=== PATIENT | male | born 1990 | race Caucasian/White ===

== ENCOUNTER 2021-12-12 23:26 | Inpatient (IN) | payer OTHER ==
[~2021-12-12] VITALS: Ht 175.3 cm; Wt 49.9 kg
[2021-12-13 01:09] LABS: HEMOGLOBIN 10.5 gm/dl (14.0-17.5); RED BLOOD COUNT 4.1 M/UL (4.20-5.50); WHITE BLOOD COUNT 26.9 K/UL (4.5-11.0)
[2021-12-13 01:36] LABS: BUN/CREATININE RATIO 43 (0-10)
[2021-12-13 05:46] LABS: HEMOGLOBIN 8.5 gm/dl (14.0-17.5); RED BLOOD COUNT 3.37 M/UL (4.20-5.50); WHITE BLOOD COUNT 12.5 K/UL (4.5-11.0)
[2021-12-13 05:53] LABS: BUN/CREATININE RATIO 45 (0-10)
[2021-12-13] MEDS ORDERED: IBUPROFEN200 MG PO (09:22)
--- NOTE | 2021-12-13 10:44 | NUR ---
1044- CRITICAL LAB LACTIC ACID 29.6 CALLED TO . NO NEW ORDERS
[2021-12-13 13:39] LABS: ACINETOBACTER BAUMANNII Not Detected (Negative); CANDIDA ALBICANS Not Detected (Negative); CANDIDA KRUSEI Not Detected (Negative); CANDIDA TROPICALIS Not Detected (Negative); ENTEROCOCCUS Not Detected (Negative); ESCHERICHIA COLI Not Detected (Negative); HAEMOPHILUS INFLUENZAE Not Detected (Negative); KLEBSIELLA OXYTOCA Not Detected (Negative); KLEBSIELLA PNEUMONIAE Not Detected (Negative); KPC-CARBAPENEM-RESISTANCE GENE Not Detected (Negative); PROTEUS Not Detected (Negative); PSEUDOMONAS AERUGINOSA Not Detected (Negative); STAPHYLOCOCCUS Not Detected (Negative); STAPHYLOCOCCUS AUREUS Not Detected (Negative); STREP AGALACTIAE (GROUP B) Not Detected (Negative); STREP PYOGENES (GROUP A) Not Detected (Negative); mecA (METHICILLIN RESIST GENE Not Detected (Negative); vanA/B (VANCOMYCIN RESIST GENE Not Detected (Negative)
[2021-12-13 13:41] LABS: SERRATIA MARCESANS DETECTED (Negative); STREPTOCOCCUS DETECTED (Negative)
--- NOTE | 2021-12-13 14:10 | NUR ---
PATIENT RECEIVED FROM MED SURG. ARRIVES TO ROOM UPON ASSESSMENT RESPIRATIONS OF 47. O2 SAT 96% ON 5 LITERS. PATIENT IS QUITE ANXIOUS. REPORT TO MD. NEW ORDERS NOTED.
[2021-12-13] MEDS ORDERED: [UNRECOGNIZED DRUG - REMARK] (17:23)
[2021-12-13 18:47] LABS: HEMOGLOBIN 8.9 gm/dl (14.0-17.5); RED BLOOD COUNT 3.49 M/UL (4.20-5.50)
[2021-12-13 18:56] LABS: WHITE BLOOD COUNT 28.6 K/UL (4.5-11.0)
[2021-12-14 02:47] LABS: HEMOGLOBIN 8.2 gm/dl (14.0-17.5); RED BLOOD COUNT 3.2 M/UL (4.20-5.50); WHITE BLOOD COUNT 28.4 K/UL (4.5-11.0)
[2021-12-14 03:04] LABS: BUN/CREATININE RATIO 46 (0-10)
--- NOTE | 2021-12-14 11:33 | NUR ---
PATIENT IS QUITE ANXIOUS, AFTER ANXIETY MEDICATION
--- NOTE | 2021-12-14 11:56 | NUR ---
PATIENT INCREASINGLY AGITATED, PULLING OFF OXYGEN, PULLING OUT IV, PULLING OFF TELEMETRY. PATIENT RESPIRTATIONS ARE STAYING IN THE UPPER 40'S AND 50'S. CALLED PULMONOLOGY MD COBURN TO ALERT HER OF THE PATIENT DECLINE. SHE REQUESTS PATIENT BE SENT TO ICU. PATIENT STILL AWAITING BED AT [facility]
--- NOTE | 2021-12-14 12:57 | NUR ---
REPORT GIVEN TO [facility] ICU. PATIENT TRANSPORTED PER PCU STAFF AND RESPIRATORY. PATIENT TOLERATED WELL
[2021-12-14 15:12] LABS: HEMOGLOBIN 8.7 gm/dl (14.0-17.5); RED BLOOD COUNT 3.47 M/UL (4.20-5.50)
[2021-12-14 15:14] LABS: WHITE BLOOD COUNT 30.7 K/UL (4.5-11.0)
[2021-12-15 02:32] LABS: HEMOGLOBIN 6.4 gm/dl (14.0-17.5); RED BLOOD COUNT 2.6 M/UL (4.20-5.50); WHITE BLOOD COUNT 39.6 K/UL (4.5-11.0)
[2021-12-16 17:09] LABS: ALPHA-1-ANTITRYPSIN, SERUM 451 mg/dL (95-164)
[2021-12-17 16:14] LABS: ORGANISM ID Not indicated. (.); SPECIMEN SOURCE Urine (.); STREPTOCOCCUS PNEUMONIAE AG Negative (Negative)
== END 2021-12-15 11:37 | disposition expired | DRG 871 ==
LOC: ER1 23:26 → CDU 12-13 04:16 → M/S 12-13 06:55 → PROG CARE 12-13 14:17 → CCU 12-14 12:29
PROVIDERS: Internal Medicine; Student in an Organized Health Care Education/Training Program; ADMIT Internal Medicine
PROC: 3E03329 Introduction of Other Anti-infective into Peripheral Vein, Percutaneous Approach (ICD-10-PCS; principal; 2021-12-13)
PROC: 30233R1 Transfusion of Nonautologous Platelets into Peripheral Vein, Percutaneous Approach (ICD-10-PCS; 2021-12-13)
PROC: B24BZZZ Ultrasonography of Heart with Aorta (ICD-10-PCS; 2021-12-13)
PROC: 05HN33Z Insertion of Infusion Device into Left Internal Jugular Vein, Percutaneous Approach (ICD-10-PCS; 2021-12-14)
PROC: B544ZZA Ultrasonography of Left Jugular Veins, Guidance (ICD-10-PCS; 2021-12-14)
PROC: 0BH18EZ Insertion of Endotracheal Airway into Trachea, Via Natural or Artificial Opening Endoscopic (ICD-10-PCS; 2021-12-14)
PROC: 5A1935Z Respiratory Ventilation, Less than 24 Consecutive Hours (ICD-10-PCS; 2021-12-14)
PROC: 5A0935A Assistance with Respiratory Ventilation, Less than 24 Consecutive Hours, High Flow/Velocity Cannula (ICD-10-PCS; 2021-12-14)
PROC: 3E043XZ Introduction of Vasopressor into Central Vein, Percutaneous Approach (ICD-10-PCS; 2021-12-14)
PROC: 03HY32Z Insertion of Monitoring Device into Upper Artery, Percutaneous Approach (ICD-10-PCS; 2021-12-15)
PROC: 4A133B1 Monitoring of Arterial Pressure, Peripheral, Percutaneous Approach (ICD-10-PCS; 2021-12-15)
PROC: 4A133J1 Monitoring of Arterial Pulse, Peripheral, Percutaneous Approach (ICD-10-PCS; 2021-12-15)
PROC: 30233N1 Transfusion of Nonautologous Red Blood Cells into Peripheral Vein, Percutaneous Approach (ICD-10-PCS; 2021-12-15)
DX: A41.9 Sepsis, unspecified organism (principal); I26.90 Septic pulmonary embolism without acute cor pulmonale; D65 Disseminated intravascular coagulation [defibrination syndrome]; J18.9 Pneumonia, unspecified organism; J80 Acute respiratory distress syndrome; I33.0 Acute and subacute infective endocarditis; N28.0 Ischemia and infarction of kidney; N17.9 Acute kidney failure, unspecified; R64 Cachexia; D62 Acute posthemorrhagic anemia; Z68.1 Body mass index [BMI] 19.9 or less, adult; Z66 Do not resuscitate; Z20.822 Contact with and (suspected) exposure to COVID-19; F41.9 Anxiety disorder, unspecified; F32.A Depression, unspecified; F17.200 Nicotine dependence, unspecified, uncomplicated; K59.00 Constipation, unspecified; I36.1 Nonrheumatic tricuspid (valve) insufficiency; R65.20 Severe sepsis without septic shock; Z95.0 Presence of cardiac pacemaker; Z79.899 Other long term (current) drug therapy; Z51.5 Encounter for palliative care
CPT/HCPCS: ECHO; 31500; 36415; 36430; 36600; 71045; 71250; 80048; 80053; 80202; 80307; 81001; 82103; 82104; 82550; 82553; 82607; 82728; 82746; 82803; 82962; 83540; 83550; 83605; 83690; 83735; 83880; 84132; 84484; 85007; 85014; 85018; 85025; 85027; 85379; 85384; 85610; 85652; 86140; 86850; 86900; 86901; 86920; 87040; 87070; 87077; 87086; 87150; 87186; 87205; 87278; 87899; 93005; 93306; 94002; 94003; 94660; 94664; 94760; 96374; 96375; 99285; C1751; J0171; J0692; J2185; J2250; J2270; J2370; J2704; J3370; J7030; J7040; J7070; P9016; P9035; P9047; Q0177; Q9967; U0002